=== PATIENT | female | born 1970 | race Caucasian/White ===

== ENCOUNTER 2018-08-23 12:53 | Emergency (ER) | payer OTHER ==
[2018-08-23 13:06] VITALS: BP 143/83
[2018-08-23] MEDS ORDERED: IPRATROPIUM/ALBUTEROL 3 ML NEB INH STA (13:15)
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
[2018-08-23] MEDS ORDERED: AZITHROMYCIN 250 MG TABLET PO STA (13:46)
[2018-08-23] MEDS ORDERED: predniSONE 20 MG TABLET PO STA (13:51)
--- NOTE | 2018-08-23 13:54 | XRAY Report ---
Reason: cough Procedure Date: 08/23/2018 Accession Number: [id number] / [id number] Procedure: XR - Chest 2 View X-Ray CPT Code: 90530 FULL RESULT: EXAM: CHEST RADIOGRAPHY EXAM DATE: 08/23/2018 01:45 PM. CLINICAL HISTORY: Cough. COMPARISON: None. TECHNIQUE: 2 views. FINDINGS: Lungs/Pleura: Diffuse interstitial prominence with patchy bibasilar added density. No consolidation, effusion, or pneumothorax. Mediastinum: Heart and mediastinal contours are unremarkable. Other: None. IMPRESSION: Interstitial infiltrates, probably viral or mycoplasmal. [facility]
== END 2018-08-23 14:05 | disposition home or self-care (01) ==
LOC: ED 12:53
DX: S09.90XA Unspecified injury of head, initial encounter (principal); V59.40XA Driver of pick-up truck or van injured in collision with unspecified motor vehicles in traffic accident, initial encounter; Y92.481 Parking lot as the place of occurrence of the external cause; J18.9 Pneumonia, unspecified organism; R03.0 Elevated blood-pressure reading, without diagnosis of hypertension
CPT/HCPCS: 71046; 94640; 99283; A9270; J7512